=== PATIENT | male | born 1985 | race Caucasian/White ===

== ENCOUNTER 2020-06-20 18:14 | Emergency (ER) | payer OTHER ==
[~2020-06-20] VITALS: Ht 182.9 cm; Wt 81.6 kg
[2020-06-20 18:32] VITALS: BP 108/108
[2020-06-20 18:38] VITALS: BP_SYST 108; BP_SYST 138; BP_DIAS 108
[2020-06-20] MEDS ORDERED: TORADOL ONE (18:41)
[2020-06-20] MEDS ORDERED: TORADOL IM STA (18:42)
--- NOTE | 2020-06-20 18:48 | ER.PDOC ---
General Chief Complaint: Toothache Stated Complaint: TOOTH ACHE Time seen by MD: 18:44 Source: patient Exam Limitations: no limitations History of Present Illness Initial Comments Toothache for 2 days, patient was seen at the Urgent care earlier today and was given Clindamycin. He is here because of pain and was not prescribed pain pills. He told me that he also tested positive for COVID-19 today. Timing/Duration: gradual Associated Symptoms: toothache Severity: moderate Prior symptoms/Treatment: Similar symptoms previous, Recenly Seen Past Medical History Medical History: thyroid disease Social History Alcohol Use: none Drug Use: none Constitutional: no symptoms reported Mouth: see HPI Respiratory: no symptoms reported Cardiovascular: no symptoms reported Gastrointestinal: no symptoms reported Musculoskeletal: no symptoms reported Skin: no symptoms reported Neurological: no symptoms reported All Other Systems: Reviewed and Negative Physical Exam General Appearance: alert, no distress Head/Neck: head nml inspection, neck nml inspection, trachea midline, no lymphadenopathy, thyroid nml Mouth: dental tenderness (left upper last molar) Throat: pharynx nml, voice nml, no airway problems Respiratory: no resp. distress, lungs clear CVS: reg. rate & rhythm, heart sounds nml Abdomen: non-tender, no organomegaly Extremities: non-tender, ROM nml Skin Exam: Normal Color, Warm/Dry NEURO/PSYCH: oriented X3, mood/effect nml Results/Orders Results/Orders Orders - TRUNG TAVAREZ MD Ketorolac Tromethamine (Toradol) (06/20/20 18:42) Vital Signs Date Time Temp Pulse Resp B/P (MAP) Pulse Ox O2 Delivery O2 Flow Rate FiO2 06/20/20 18:38 98.2 138 16 06/20/20 18:38 98.2 138 16 138/108 (118) 99 Room Air 06/20/20 18:32 98.2 138 16 99 ER DEPART Departure Time of Disposition: 18:47 Disposition: 01 HOME, SELF-CARE Impression: Primary Impression: Pain, dental Condition: Stable Additional Instructions: Continue Clindamycin Ibuprofen Tramadol F/U with your Dentist next week Return to ED if any concerns Duration or Time Spent with Pa: 10 min TRUNG TAVAREZ MD Jun 20, 2020 18:48
== END 2020-06-20 18:55 | disposition home or self-care (01) ==
LOC: ER 18:14
DX: K08.89 Other specified disorders of teeth and supporting structures (principal); U07.1 COVID-19; E07.9 Disorder of thyroid, unspecified
CPT/HCPCS: 96372; 99283; J1885